=== PATIENT | male | born 1975 | race Caucasian/White ===

== ENCOUNTER 2017-05-03 12:01 | Emergency (ER) | payer OTHER ==
[2017-05-03 12:02] VITALS: BMI 25.0
[2017-05-03 12:12] VITALS: RESP 18; TEMP 98
[2017-05-03] MEDS ORDERED: Morphine 4 mg/ml ISec IVP STA (12:51)
--- NOTE | 2017-05-03 12:53 | ED PDOC ---
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 He is complaining of pain "all over." Patient is not sure if he hit his head. Patient denies any loss of consciousness , headache, fever, chills, cough, nausea, vomiting, diarrhea, visual changes, neck pain, dysuria, hematuria, frequency, bowel/bladder incontinence or retention, abdominal pain. 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 Time/Duration: Prior to Arrival Symptom Onset: Sudden Symptom Course: Unchanged Activities at Onset: Light Modifying Factors (Text): pain is worse with upper extremity movement Context: Work Past Medical History - Provider Review Nursing Documentation Reviewed: Yes - Infectious Disease Hx of Infectious Diseases: None - Reproductive Currently : No - Cardiac Hx Hypertension: Yes - Psychiatric Hx Substance Use: No - Anesthesia Hx Anesthesia: No Hx Anesthesia Reactions: No Hx Malignant Hyperthermia: No Family/Social History - Physician Review Nursing Documentation Reviewed: Yes Family/Social History: Unknown Family HX Smoking Status: Never Smoked Hx Alcohol Use: No Hx Substance Use: No Allergies/Home Meds Allergies/Adverse Reactions: Allergies No Known Allergies Allergy (Verified 11/02/15 00:48) Home Medications: Home Meds Medication Instructions Recorded Confirmed No Known Home Med 05/03/17 05/03/17 Review of Systems - Review of Systems Constitutional: absent: Fevers Eyes: absent: Vision Changes Respiratory: absent: SOB, Cough Cardiovascular: absent: Chest Pain, Palpitations Gastrointestinal: absent: Abdominal Pain, Constipation, Diarrhea, Nausea, Vomiting Genitourinary Male: absent: Frequency Musculoskeletal: Arthralgias, Back Pain, Neck Pain Skin: absent: Rash, Skin Lesions, Laceration Neurological: absent: Headache, Dizziness Psychiatric: absent: Anxiety, Depression Physical Exam Vital Signs Reviewed: Yes Vital Signs Temp Pulse Resp BP Pulse Ox 05/03/17 12:11 98.0 F 83 18 147/78 100 Temperature: Afebrile Blood Pressure: Normal Pulse: Regular Respiratory Rate: Normal Appearance: Positive for: Well-Appearing, Non-Toxic, Comfortable Pain Distress: None Mental Status: Positive for: Alert and Oriented X 3 - Systems Exam Head: Present: Atraumatic, Normocephalic Pupils: Present: PERRL Extroacular Muscles: Present: EOMI Conjunctiva: Present: Normal Mouth: Present: Moist Mucous Membranes Neck: Present: Normal Range of Motion Respiratory/Chest: Present: Clear to Auscultation, Good Air Exchange. No: Respiratory Distress, Accessory Muscle Use Cardiovascular: Present: Regular Rate and Rhythm, Normal S1, S2. No: Murmurs Abdomen: Present: Normal Bowel Sounds. No: Tenderness, Distention, Peritoneal Signs Back: Present: Midline Tenderness, Other (Lumbar tenderness) Upper Extremity: Present: Normal ROM, NORMAL PULSES, Neurovascularly Intact, Other (Normal passive range of motion at b/l shoulders). No: Cyanosis, Edema, Tenderness, Swelling, Deformity Lower Extremity: Present: Normal Inspection, Normal ROM. No: Edema, Deformity Neurological: Present: GCS=15, CN II-XII Intact, Speech Normal Skin: Present: Warm, Dry, Normal Color. No: Rashes Psychiatric: Present: Alert, Oriented x 3, Normal Insight, Normal Concentration Medical Decision Making ED Course and Treatment: 05/03/17 12:35 Impression: 42 year old male with lower back pain, bilateral shoulder pain, and right elbow and arm pain after mechanical fall at job. Plan: -- CT Spine without contrast -- CT Chest without contrast -- CT Abdomen and Pelvis without contrast -- CT Head without contrast -- Chest X-ray -- Morphine -- Reassess and disposition Progress Notes: 05/03/17 15:24 CT Cervical Spine without contrast: Dictator : Farzad Aguirre MD FINDINGS: VERTEBRAE:No fracture. Normal alignment. No destructive bony lesion. DISCS/SPINAL CANAL/NEURAL FORAMINA:No significant central canal or neural foraminal stenosis. Discs heights are grossly preserved. PARASPINAL SOFT TISSUES:Unremarkable. OTHER FINDINGS:None. IMPRESSION: Unremarkable CT of the cervical spine. 05/03/17 15:34 Dictator : Farzad Aguirre MD CT Chest with Contrast: LUNGS: Clear. No nodule, mass or consolidation. MEDIASTINUM: Unremarkable. Normal caliber aorta and pulmonary arterial trunk. No aortic dissection. Normal size heart. LYMPH NODES: Unremarkable. PLEURA: Unremarkable. No pneumothorax. No Pleural fluid. BONES: Unremarkable OTHER FINDINGS: None. CT Abdomen and Pelvis: FINDINGS: LOWER THORAX:Unremarkable. LIVER:Unremarkable. No gross lesion or ductal dilatation. GALLBLADDER AND BILE DUCTS:Unremarkable. PANCREAS: Unremarkable. No gross lesion or ductal dilatation. SPLEEN:Unremarkable. ADRENALS:Unremarkable. No mass. KIDNEYS AND URETERS:Unremarkable. No hydronephrosis. No solid mass. VASCULATURE:Unremarkable. No aortic aneurysm. BOWEL:Unremarkable. No obstruction. No gross mural thickening. APPENDIX:Normal appendix. PERITONEUM:Unremarkable. No free fluid. No free air. LYMPH NODES:Unremarkable. No enlarged lymph nodes. BLADDER:Unremarkable. REPRODUCTIVE:Unremarkable. BONES:No acute fracture. OTHER FINDINGS:None. IMPRESSION: No acute finding The thoracic and Lumbar spine are unremarkable. 05/03/17 16:17 CT head, CT c-spine, CT chest/abd/pelvis negative. Patient reporting persistent extremity pain. Additional xrays ordered and L shoulder, elbow and humerus negative. R elbow and humerus engative. Patient is ambulating around the ED without issue. Sister was dredge worker and patient made aware of results. 05/03/17 17:15 - Lab Interpretations Lab Results: 05/03/17 13:05 05/03/17 13:05 Lab Results 05/03/17 13:05: Sodium 140, Potassium 4.0, Chloride 105, Carbon Dioxide 22, Anion Gap 17, BUN 14, Creatinine 1.0, Est GFR ( Amer) > 60, Est GFR (Non- Af Amer) > 60, Random Glucose 91, Calcium 9.6, Total Bilirubin 1.3, AST 27, ALT 35, Alkaline Phosphatase 67, Total Protein 7.6, Albumin 4.4, Globulin 3.2, Albumin/Globulin Ratio 1.4 05/03/17 13:05: WBC 6.6, RBC 4.74, Hgb 14.1, Hct 39.7 L, MCV 83.8, MCH 29.7, MCHC 35.5, RDW 12.3, Plt Count 219, MPV 10.2, Gran % 67.0, Lymph % (Auto) 20.9 L , [place] % (Auto) 10.6 H, Eos % (Auto) 1.5, Baso % (Auto) 0.0, Gran # 4.42, Lymph # 1.4, [place] # 0.7 H, Eos # 0.1, Baso # 0.00 - RAD Interpretation Radiology Orders: 05/03/17 12:49 CERVICAL SPINE W/O CONTRAST [CT] Stat CHEST,ABD,PEL W/IV CONT ONLY [CT] Stat HEAD W/O CONTRAST [CT] Stat 05/03/17 12:54 CHEST ONE VIEW [RAD] Stat 05/03/17 15:15 SHOULDER LEFT [RAD] Stat 05/03/17 15:41 ELBOW LEFT 3 VIEWS ROUTINE [RAD] Stat ELBOW RIGHT 3 VIEWS ROUTINE [RAD] Stat 05/03/17 15:42 HUMERUS LEFT [RAD] Stat HUMERUS RIGHT [RAD] Stat - Medication Orders Current Medication Orders: Discontinued Medications Iohexol (Omnipaque 350 100 Ml) Confirm Administered Dose 350 mg .ROUTE .STK-MED ONE Stop: 05/03/17 13:48 Morphine Sulfate (Morphine) 4 mg IVP STAT STA Stop: 05/03/17 12:52 Last Admin: 05/03/17 13:08 Dose: 4 mg - Scribe Statement The provider has reviewed the documentation as recorded by the Scribe 05/03/2017 Deja Mir Provider Scribe Attestation: All medical record entries made by the Scribe were at my direction and personally dictated by me. I have reviewed the chart and agree that the record accurately reflects my personal performance of the history, physical exam, medical decision making, and the department course for this patient. I have also personally directed, reviewed, and agree with the discharge instructions and disposition. Disposition/Present on Arrival - Present on Arrival Any Indicators Present on Arrival: No History of DVT/PE: No History of Uncontrolled Diabetes: No Urinary Catheter: No History of Decub. Ulcer: No History Surgical Site Infection Following: None - Disposition Have Diagnosis and Disposition been Completed?: Yes Diagnosis: Fall Disposition: HOME/ ROUTINE Disposition Time: 16:18 Patient Plan: Discharge Patient Problems: Current Active Problems Problem Status Onset Fall Acute Condition: GOOD Discharge Instructions (ExitCare): Contusion in Adults (ED) Additional Instructions: Return to ED if condition worsens. Motrin for pain Referrals: [facility], [Primary Care Provider] - Follow up with primary Forms: [employer] (Turkish), WORK NOTE
[2017-05-03 13:28] LABS: EOS # 0.1 (0.0-0.7); EOS % 1.5 % (1.5-5.0); GRAN # 4.42 (1.4-6.5); HEMOGLOBIN 14.1 g/dL (14.0-18.0); LYMPH # 1.4 (1.2-3.4); LYMPH % 20.9 % (22.0-35.0); MEAN CELL VOLUME 83.8 fl (80.0-105.0); MEAN CORPUSCULAR HEMOGLOBIN 29.7 pg (25.0-35.0); MEAN CORPUSCULAR HGB CONC 35.5 g/dl (31.0-37.0); MEAN PLATELET VOLUME 10.2 fl (7.0-11.0); MONO # 0.7 (0.1-0.6); MONO % 10.6 % (1.0-6.0); PLATELET COUNT 219 10^3/uL (120.0-450.0); RBC 4.74 10^6/uL (3.5-6.1); RED CELL DISTRIBUTION WIDTH 12.3 % (11.5-14.5); WHITE BLOOD COUNT 6.6 10^3/ul (4.5-11.0)
[2017-05-03 13:35] LABS: ALB/GLOB RATIO 1.4 (1.1-1.8); ALBUMIN 4.4 g/dL (3.0-4.8); ALT/SGPT 35 U/L (7-56); AST/SGOT 27 U/L (15-59); BLOOD UREA NITROGEN 14 mg/dL (7-21); CALCIUM 9.6 mg/dL (8.4-10.5); GFR AFRICAN-AMERICAN > 60; GFR NON-AFRICAN AMERICAN > 60
[2017-05-03] MEDS ORDERED: Iohexol 350 MG/100 ML VIAL ONE (13:47)
--- NOTE | 2017-05-03 14:50 | CT ---
PROCEDURE: CT Chest, Abdomen and Pelvis with intravenous contrast HISTORY: fall down flight of stairs with back pain COMPARISON: None. TECHNIQUE: IV dose administered: 100 cc of Omni 350 Radiation dose: Total exam DLP = 1235 mGy-cm. This CT exam was performed using one or more of the following dose reduction techniques: Automated exposure control, adjustment of the mA and/or kV according to patient size, and/or use of iterative reconstruction technique. FINDINGS: CT CHEST WITH CONTRAST: LUNGS: Clear. No nodule, mass or consolidation. MEDIASTINUM: Unremarkable. Normal caliber aorta and pulmonary arterial trunk. No aortic dissection. Normal size heart. LYMPH NODES: Unremarkable. PLEURA: Unremarkable. No pneumothorax. No pleural fluid. BONES: Unremarkable. OTHER FINDINGS: None. CT ABDOMEN AND PELVIS: LIVER: Unremarkable. No gross lesion or ductal dilatation. GALLBLADDER AND BILE DUCTS: Unremarkable. PANCREAS: Unremarkable. No gross lesion or ductal dilatation. SPLEEN: Unremarkable. ADRENALS: Unremarkable. No mass. KIDNEYS AND URETERS: Unremarkable. No hydronephrosis. No solid mass. VASCULATURE: Unremarkable. No aortic aneurysm. BOWEL: Unremarkable. No obstruction. No gross mural thickening. APPENDIX: Normal appendix. PERITONEUM: Unremarkable. No free fluid. No free air. LYMPH NODES: Unremarkable. No enlarged lymph nodes. BLADDER: Unremarkable. REPRODUCTIVE: Unremarkable. BONES: No acute fracture. OTHER FINDINGS: None. IMPRESSION: No acute findings. The thoracic and lumbar spine are unremarkable.
--- NOTE | 2017-05-03 14:57 | CT ---
PROCEDURE: CT Cervical Spine without contrast HISTORY: Fall with neck pain COMPARISON: None available. TECHNIQUE: Axial computed tomography images were obtained of the cervical spine without the use of intravenous contrast. Coronal and sagittal reformatted images were created and reviewed. Radiation dose: Total exam DLP = mGy-cm. This CT exam was performed using one or more of the following dose reduction techniques: Automated exposure control, adjustment of the mA and/or kV according to patient size, and/or use of iterative reconstruction technique. FINDINGS: VERTEBRAE: No fracture. Normal alignment. No destructive bony lesion. DISCS/SPINAL CANAL/NEURAL FORAMINA: No significant central canal or neural foraminal stenosis. Discs heights are grossly preserved. PARASPINAL SOFT TISSUES: Unremarkable. OTHER FINDINGS: None. IMPRESSION: Unremarkable CT of the cervical spine.
--- NOTE | 2017-05-03 15:30 | RAD ---
PROCEDURE: CHEST RADIOGRAPH, 1 VIEW HISTORY: fall COMPARISON: 11/09/2016 FINDINGS: LUNGS: Clear. PLEURA: No pneumothorax or pleural fluid seen. CARDIOVASCULAR: Normal. OSSEOUS STRUCTURES: No significant abnormalities. VISUALIZED UPPER ABDOMEN: Normal. OTHER FINDINGS: None. IMPRESSION: No active disease.
--- NOTE | 2017-05-03 15:43 | RAD ---
PROCEDURE: Radiographs of the Left Shoulder HISTORY: L shoulder pain COMPARISON: No prior. FINDINGS: BONES: Normal. No fracture. JOINTS: Normal. Glenohumeral and acromioclavicular joints preserved. No osteoarthritis. SOFT TISSUES: Normal. OTHER FINDINGS: None. IMPRESSION: Normal radiographs of the left shoulder.
--- NOTE | 2017-05-03 16:15 | RAD ---
PROCEDURE: Radiographs of the left humerus. HISTORY: fall from stairs COMPARISON: None. FINDINGS: BONES: Normal. No fracture or focal lesion. SOFT TISSUES: Normal. OTHER FINDINGS: None. IMPRESSION: Normal radiographs of left humerus.
--- NOTE | 2017-05-03 16:16 | RAD ---
PROCEDURE: Radiographs of the left elbow. HISTORY: pain after falling down stairs COMPARISON: No prior. FINDINGS: BONES: Normal. No fracture. JOINTS: Normal. No osteoarthritis. SOFT TISSUES: Normal. JOINT EFFUSION: None. OTHER FINDINGS: None IMPRESSION: Unremarkable radiographs of the left elbow.
--- NOTE | 2017-05-03 16:18 | RAD ---
PROCEDURE: Radiographs of the right humerus. HISTORY: fall from stairs COMPARISON: None. FINDINGS: BONES: Normal. No fracture or focal lesion. SOFT TISSUES: Normal. OTHER FINDINGS: None. IMPRESSION: Normal radiographs of right humerus.
--- NOTE | 2017-05-03 16:19 | RAD ---
PROCEDURE: Radiographs of the right elbow. HISTORY: pain after falling down stairs COMPARISON: No prior. FINDINGS: BONES: Normal. No fracture. JOINTS: Normal. No osteoarthritis. SOFT TISSUES: Normal. JOINT EFFUSION: None. OTHER FINDINGS: None. IMPRESSION: Unremarkable radiographs of the right elbow.
[2017-05-03 17:33] VITALS: BP 135/72; PULSE 85; O2SAT 99
--- NOTE | 2017-05-04 19:44 | CT ---
PROCEDURE: CT HEAD WITHOUT CONTRAST. HISTORY: COMPARISON: None available. TECHNIQUE: Axial computed tomography images were obtained through the head/brain without intravenous contrast. Radiation dose: Total exam DLP = 837 mGy-cm. This CT exam was performed using one or more of the following dose reduction techniques: Automated exposure control, adjustment of the mA and/or kV according to patient size, and/or use of iterative reconstruction technique. FINDINGS: HEMORRHAGE: No intracranial hemorrhage. BRAIN: No mass effect or edema. No atrophy or chronic microvascular ischemic changes. VENTRICLES: Unremarkable. No hydrocephalus. CALVARIUM: Unremarkable. PARANASAL SINUSES: Unremarkable as visualized. No significant inflammatory changes. MASTOID AIR CELLS: Unremarkable as visualized. No inflammatory changes. OTHER FINDINGS: None. IMPRESSION: No acute finding
== END 2017-05-03 16:20 | disposition home or self-care (01) ==
LOC: ED 12:01
DX: Z04.3 Encounter for examination and observation following other accident (principal); W10.8XXA Fall (on) (from) other stairs and steps, initial encounter; Y93.89 Activity, other specified; Y92.69 Other specified industrial and construction area as the place of occurrence of the external cause; Y99.8 Other external cause status
CPT/HCPCS: 70450; 71010; 71260; 72125; 73030; 73060; 73080; 74177; 80053; 85025; 96374; 99284; J2270; Q9967